=== PATIENT | male | born 1995 | race Caucasian/White ===

== ENCOUNTER 2017-10-11 06:58 | Emergency (ER) | payer BC, OTHER ==
[~2017-10-11] VITALS: Ht 160 cm; Wt 70.3 kg
[2017-10-11 07:01] VITALS: BP_SYST 139
[2017-10-11 07:35] VITALS: BP_SYST 139
== END 2017-10-11 07:35 ==
LOC: SED 06:58
DX: Z04.1 Encounter for examination and observation following transport accident (principal); F10.10 Alcohol abuse, uncomplicated; V89.2XXA Person injured in unspecified motor-vehicle accident, traffic, initial encounter; Y93.89 Activity, other specified; Y92.488 Other paved roadways as the place of occurrence of the external cause; Y99.8 Other external cause status
CPT/HCPCS: 99283